=== PATIENT | female | born 1980 | race Caucasian/White ===

== ENCOUNTER → 2016-12-29 | Outpatient (CLI) | payer OTHER ==
[~2016-12-29] VITALS: Ht 167.6 cm; Wt 64.1 kg
[~2016-12-29] MED LIST: ACCUTANE40 MG PO; ALEVE220 MG PO; FISH OIL 1,001000 M2 PO; GLUCOSAMINE-CH1 EAC5 PO; PROZAC 10 MG CA10 MG PO; TRAMADOL 50 MG50 MG PO; TRAMADOL HCL50 MG PO; UNICOMPLEX M TA1 TA1 PO
--- NOTE | ~2016-12-29 | P ---
[address] [place] [address] PROCEDURE REPORT Name: GRETCHEN RATLIFF Room #: REG [facility]#: [id number] Admission: 12/29/16 Attend Phys: Declan Uribe DO Discharge: Date of : 78 Report #: [id number] THIS REPORT FOR: //name// CC: Fco Uribe DATE OF SERVICE: 12/29/2016 PROCEDURE NOTE: DESCRIPTION OF PROCEDURE: Right L4-L5, L5-S1 intra-articular facet injection under fluoroscopic guidance. This is the first procedure of the first series that the patient is undergoing. After obtaining written consent, the patient was taken back to the fluoroscopy suite and placed in a prone position with a pillow under the abdomen to decrease the lumbar lordosis and to facilitate needle entry into the facet joints. The skin overlying the lumbosacral area was prepped and draped in an aseptic fashion. AP and lateral fluoroscopic imaging was obtained. Optimal position of the fluoroscope occurred when the joint line was first visualized. The facet joints were identified radiographically directed adjacent to the superior articular process of the caudad vertebrae. The skin overlying the target site(s) of injection was anesthetized using 3 mL of 1% lidocaine. A 22-gauge 3-1/2 inch spinal needle with a bent tip was advanced towards the L4-L5, L5-S1 facet joint(s) on the right side under fluoroscopic guidance. The firm posterior capsule had its characteristic feel and the needle was advanced a few additional millimeters beyond the joint capsule into the joint space, but not into the articular cartilage. After the joint space was entered and aspiration was negative for heme or CSF, 0.2 mL of Omnipaque was injected demonstrating a characteristic facet arthrogram. After negative aspiration for heme or CSF, 2 mL of a solution containing 1 mL 40 mg/mL 40 mg total triamcinolone, 1 mL of bupivacaine 0.5% was slowly injected at each of 2 facet(s). The needle(s) was then removed. There were no apparent complications. The patient tolerated the procedure well and was carefully escorted to the recovery room in stable condition. The VAS was 6/10 before the procedure and 5/10 ten minutes after the procedure. After meeting discharge criteria, the patient was discharged home. By: 1129 [id number] Declan Uribe DO /nt
--- NOTE | ~2016-12-29 | H ---
[facility] [place] [address] HISTORY AND PHYSICAL Name: GRETCHEN RATLIFF Room #: REG [facility]#: [id number] Admission: 12/29/16 Attend Phys: Declan Uribe DO Discharge: Date of : 78 Report #: [id number] THIS REPORT FOR: //name// CC: Ramsey Uribe DATE OF SERVICE: 12/29/2016 REFERRING PHYSICIAN: Dr. Mustafa . CHIEF COMPLAINT: Low back pain, right upper buttock pain. HISTORY OF PRESENT ILLNESS: As you know, the patient is an extremely pleasant 36-year-old female who returns today in followup visit with ongoing right low back pain. The patient states this pain has progressively worsened. She is placing pain score today at around 6/10. She indicates she has been evaluated by a sports physician, Dr. Rodgers with [facility] who just diagnosed her with hamstring tendinitis. This has improved her lower buttock and posterolateral thigh pain. She continues to experience axial back pain on the right side radiating to just the upper buttock area. Pain is exacerbated with activities, working out, running, improves with cold compresses, decreasing activities, heat, ibuprofen. She has been referred back to our clinic to discuss treatment options for axial back pain believed to be due to facet arthropathy. ALLERGIES: No known drug allergies. CURRENT MEDICATIONS: 1. [place] 3 fish oil. 2. Multivitamin. SOCIAL HISTORY: .The patient denies tobacco, alcohol, IV or illicit drug use. She is working, not receiving workmen's compensation, unaccompanied today. IMAGING: The patient underwent recent diagnostic imaging, but is not available to us at this time. PHYSICAL EXAMINATION: VITAL SIGNS: Blood pressure 122/72, pulse 73, respiratory rate 16, unlabored. The patient is 100% on room air. Height 5 feet 6 inches tall, weight 141 pounds, BMI calculated 22.8. GENERAL: Well developed, well nourished, well hydrated 36-year-old female appearing her stated age. She is placing pain score today at around 6/10. HEENT: Normocephalic, atraumatic. Pupils equal, round, reactive to light. Extraocular muscles are intact. Sclerae nonicteric without injection. [address] [address] HISTORY AND PHYSICAL Name: GRETCHEN RATLIFF Room #: REG [facility]#: [id number] Admission: 12/29/16 Attend Phys: Declan Uribe DO Discharge: Date of : 78 Report #: [id number] NEUROLOGIC: Cranial nerves 2-12 grossly intact. Speech is fluent. The patient deemed an excellent historian. EXTREMITIES: Show no clubbing, no cyanosis, no edema. MUSCULOSKELETAL: Palpatory tenderness is noted over the paraspinal musculature, right lower lumbar spine. Deep palpation over the facet joints at L4-L5 and L5-S1 cause intensification of pain. Rotation and lateral flexion of the lumbar spine also causes intensification of pain to the right, negative left. Seated straight leg raising negative, supine straight leg raising negative. Torito's test is negative. Modified Gaenslen's is positive for axial low back pain. IMPRESSION: 1. Chronic low back pain. 2. Lumbosacral spondylosis without radiculopathy. 3. Myofascial pain. PLAN: Based on today's physical exam, history the patient has provided, the description the patient uses in regards to pain as well as area of discomfort, likely source of the patient's pain is facet arthropathy of the lower lumbar spine. The patient has likely [id number] arthritic changes at L4-L5 and L5-S1 on the right that is exacerbating her symptoms. Deep palpation in the area as well provocation testing over this area causes intensification of pain. There is no radicular component. The patient and I discussed treatment options for facet arthropathy pain. These would include physical therapy, stretching exercises, core strengthening. We discussed medication management with addition of a nonsteroidal anti-inflammatory on a consistent basis. We discussed intra-articular facet injections, medial branch nerve blocks, radiofrequency lesioning as treatment options. After reviewing risks and benefits of all proposed treatment options, the patient chose to begin with intra-articular facet injections in hopes of improving pain. The patient was advised risks and benefits of intra-articular facet injections. These risks include, but are not necessarily limited to bleeding, bruising, infection, worsening pain, no relief of pain, also risk of temporary or permanent muscle weakness, temporary or permanent nerve damage, possible paralysis and . The patient states understood and wished to proceed. No medication changes were made at today's visit. The patient to continue current medical therapy as previously prescribed. The patient to return to our clinic on an as-needed basis for possible repeat epidural injections, discuss efficacy and determine if further injection [facility] [address] [place] [address] HISTORY AND PHYSICAL Name: GRETCHEN RATLIFF Room #: REG [facility]#: [id number] Admission: 12/29/16 Attend Phys: Declan Uribe DO Discharge: Date of : 78 Report #: [id number] therapies or medial branch nerve blocks with radiofrequency lesioning would be necessary. By: 1129 1209 Declan Uribe DO /nt
[2016-12-29 09:38] VITALS: BP 122/72
== END | disposition home or self-care (01) ==
LOC: PAIN 06:44
DX: M47.817 Spondylosis without myelopathy or radiculopathy, lumbosacral region (principal); M79.1 Myalgia; M77.9 Enthesopathy, unspecified

== ENCOUNTER → 2018-01-11 | Outpatient (CLI) | payer OTHER ==
[~2018-01-11] VITALS: Ht 167.6 cm; Wt 63.7 kg
[~2018-01-11] MED LIST changes: +GLUCOSAMINE CH1 EAC1 PO; +IBUPROFEN 600600 M1 PO
--- NOTE | ~2018-01-11 | HPC ---
[facility] [place] [address] PAIN MANAGEMENT CONSULTATION Name: GRETCHEN RATLIFF Room #: REG [facility].#: [id number] Admission: 01/11/18 Attend Phys: Declan Uribe DO Discharge: Date of : 78 Report #: [id number] THIS REPORT FOR: //name// CC: HERON Uribe DATE OF SERVICE: 01/11/2018 REFERRING PHYSICIAN: Dr. Hreon Walters. CHIEF COMPLAINT: Left groin and anterior thigh pain, left buttock pain. HISTORY OF PRESENT ILLNESS: As you know, the patient is an extremely pleasant 38-year-old female who returns today in followup visit with new onset of left groin pain, left anterior thigh pain and left buttock pain. The patient states that she has been in her normal state of health, but began to experience these symptoms after a fairly heavy workout routines at [facility]. This in conjunction with her continued running seems to exacerbate her symptoms. She denies any specific injury or trauma that may have led to symptom development. She states that activity such as externally rotating her left leg improved symptoms, internally rotating left leg exacerbate symptoms. She is able to point the piriformis area on the left as well as anterior thigh and groin as the source of her symptoms. As you are aware, the patient does have some fairly significant arthritic changes in the right knee, and there is some concern that changes may be occurring in the left hip. She returns to discuss options for treatment for this onset of symptoms that began spontaneously about one month ago. She indicates pain level of 7/10, states her pain is sharp in sensation, exacerbated with running, walking, getting up. Sitting, repositioning and heat and cold compresses tend to improve pain. She is referred back to our clinic to discuss treatment options for the new onset of left groin, anterior thigh and buttock pain. ALLERGIES: No known drug allergies. CURRENT MEDICATIONS: Multivitamin 1 tab per day, omega-3 fish oil 1 tab per day, glucosamine chondroitin 1 tab per day, ibuprofen 600 mg 3 times a day. SOCIAL HISTORY: The patient denies tobacco, alcohol, IV or illicit drug use. She is working, not receiving workmen's compensation. She is unaccompanied today. IMAGING: No new imaging available. PHYSICAL EXAMINATION: VITAL SIGNS: Blood pressure 122/70, pulse 80, respiratory rate 14 and [facility] [address] [place] [address] PAIN MANAGEMENT CONSULTATION Name: GRECTHEN RATLIFF Room #: REG [facility]#: [id number] Admission: 01/11/18 Attend Phys: Declan Uribe DO Discharge: Date of : 78 Report #: [id number] unlabored. The patient is 99% on room air. Height 5 feet 6 inches tall, weight 140.4 pounds, BMI calculated 22.7. GENERAL: Well-developed, well-nourished, well-hydrated 38-year-old female, who appears her stated age. She is placing current pain score around 9/10. HEENT: Normocephalic, atraumatic. Pupils equal, round, reactive to light. Extraocular muscles are intact. NEUROLOGIC: Speech fluent. The patient deemed an excellent historian. LUNGS: Clear, no wheeze, rhonchi or rales. CARDIOVASCULAR: Regular. No appreciable gallop, no rub. ABDOMEN: Soft, nontender, nondistended. EXTREMITIES: Show no clubbing, no cyanosis, no edema. MUSCULOSKELETAL: The patient has palpatory tenderness over the distribution of the piriformis muscle on the left when compared to the right. Deep palpation area causes intensification of pain. External rotation of the left hip causes improvement in symptoms. Internal rotation of left hip causes intensification of pain directly over the piriformis area. Torito test is positive on the left, negative right. Gait appears mildly antalgic favoring left lower extremity. Muscle bulk and tone equal and symmetrical in lower extremities. Lumbar provocation testing is met with no increase in symptom development. Seated straight leg raising negative. Supine straight leg raising negative. She is intact to light touch from L1 through S2 dermatomes. Ankle clonus negative. Babinski is negative. ASSESSMENT: 1. Left piriformis syndrome. 2. Left hip pain. 3. Intractable pain. PLAN: 1. Based on today's physical exam, history the patient has provided, the description the patient uses in regards to pain as well as the distribution of symptoms and the provocating factors, it appears the patient is suffering from left piriformis syndrome. There is a possibility she has some changes within the left hip itself. I am not concerned about arthritic changes as much as I am worried about a potential labral issues given the anterior thigh distribution of symptoms, which is atypical for piriformis syndrome. She certainly has had distribution significant for piriformis on the left from the buttock and posterolateral thigh issues and intermittent groin issues, but the groin and anterior thigh would be more related to hip. We have discussed with the patient options for treatment including the following: We discussed physical therapy, stretching exercises in a formalized and in-formalized fashion. We discussed medication management with anti-inflammatory medications on a consistent basis. We discussed further imaging to determine if there is specific pathology within the hip itself or the piriformis area, and we discussed in generalities a possible surgical options. After reviewing risks and benefits of all proposed treatment options, the patient chose to begin with conservative treatment. [facility] [address] [place] [address] PAIN MANAGEMENT CONSULTATION Name: GRETCHEN RATLIFF Room #: REG [facility]#: [id number] Admission: 01/11/18 Attend Phys: Declan Uribe DO Discharge: Date of : 78 Report #: [id number] 2. The patient and I discussed the possibility of treatment for the piriformis to be myofascial release, deep tissue massage and stretching techniques. She was given information about the stretching techniques. She is going to be following up with a massage therapist this afternoon for deep tissue massage. This in conjunction with the piriformis stretching should improve the piriformis syndrome. She will initiate this therapy immediately. She will contact our clinic over the next week or two after she has completed a couple of sessions with deep tissue massage and has been consistently performing the piriformis stretching. 3. I highly recommend the patient to undergo imaging of the left hip. I have recommended the patient undergo MRI of the left hip. I am not concerned about arthritic changes necessarily, but I am worried about labral issues as the patient is highly active and running and specific exercises and her Orangetheory courses that could put the labrum at risk in the hip area. Imaging can be obtained at her earliest convenience. I have written for the MRI today. She will fill this if her symptoms do not improve with the piriformis stretching and myofascial release techniques and massage therapy as listed above. 4. We made no changes in the patient's medication therapy at this time. We could consider medication management if her symptoms do not improve, but at this point, we recommend more conservative treatment. 5. The patient will contact our clinic if she does fulfill the MRI imaging. We will then review the findings and discuss the recommendations based on those findings. She can contact the clinic, and we will call her to determine treatment options. If it is necessary for the patient to be returning in followup visit, we will have her return to the next available appointment following her MRI. By: [id number] Declan Uribe DO /can
[2018-01-11 09:32] VITALS: BP 122/70
== END ==
LOC: PAIN 06:59
DX: M25.552 Pain in left hip (principal); G57.02 Lesion of sciatic nerve, left lower limb; G89.4 Chronic pain syndrome